=== PATIENT | female | born 1990 | race Caucasian/White ===

== ENCOUNTER 2023-09-05 08:26 | Emergency (ER) | payer OTHER ==
[2023-09-05 08:34] VITALS: BP 94/63; PULSE 92; RESP 18; TEMP 98.3; BMI 28.9
== END 2023-09-05 09:16 | disposition home or self-care (01) ==
LOC: JERFT 08:26
DX: R09.81 Nasal congestion (principal); R05.9 Cough, unspecified; R09.89 Other specified symptoms and signs involving the circulatory and respiratory systems; J06.9 Acute upper respiratory infection, unspecified; U07.1 COVID-19
CPT/HCPCS: 0241U-QW; 99283-25